=== PATIENT | male | born 1995 | race Caucasian/White ===

== ENCOUNTER → 2018-01-23 14:48 | Outpatient (CLI) | payer OTHER, SELFPAY ==
[2018-01-23 15:18] LABS: Hemoglobin A1C% w Est Avg Glu 4.7 % (4.0-6.0)
[2018-01-23 15:51] LABS: Cholesterol 139 mg/dL (140-199); HDL Cholesterol 58 mg/dL (40-60); LDL Cholesterol Calculated 69 mg/dL (<100); Triglycerides 61 mg/dL (35-150)
== END ==
PROVIDERS: PCP Internal Medicine; Visit Provider Internal Medicine
DX: Z00.00 Encounter for general adult medical examination without abnormal findings (principal)
CPT/HCPCS: 36415; 80061; 83036

== ENCOUNTER → 2018-10-10 10:10 | Outpatient (CLI) | payer OTHER, SELFPAY | PROVIDERS: Family Provider Family Medicine; PCP Internal Medicine; Visit Provider Registered Nurse | DX: R50.9 Fever, unspecified (principal) | CPT/HCPCS: 87400 ==

== ENCOUNTER 2020-08-30 15:30 | Outpatient (RCR) | payer OTHER, SELFPAY ==
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
== END 2020-09-13 11:12 ==
LOC: SP 15:30
PROVIDERS: PCP Internal Medicine; Referring Provider Internal Medicine; Visit Provider Internal Medicine
DX: H91.92 Unspecified hearing loss, left ear (principal); S06.9X9D Unspecified intracranial injury with loss of consciousness of unspecified duration, subsequent encounter; S06.339D Contusion and laceration of cerebrum, unspecified, with loss of consciousness of unspecified duration, subsequent encounter
CPT/HCPCS: 92507; 92523; 96125; 97129; 97130

== ENCOUNTER 2021-10-16 13:39 | Emergency (ER) | payer OTHER, SELFPAY ==
[2021-10-16 14:01] VITALS: BP 137/88; PULSE 102; RESP 17; TEMP 36.6; O2SAT 97; BMI 31.1
[2021-10-16] MEDS: TET,DIPH,PERTUSS(ACELL),VAC/PF 0.5 ML SYRINGE IM (16:04)
[2021-10-16] MEDS: PENICILLIN VK 250 MG TABLET 500 MG PO (16:30)
--- NOTE | 2021-10-16 16:33 | ED.ANIMALBIT ---
HPI - Animal Bite <AJ Cm - Last Filed: 10/16/21 16:37> General Chief Complaint: Animal Bite Stated Complaint: Bit by a mouse at work- needs rabies shot Time Seen by Provider: 10/16/21 16:17 Source: patient Mode of arrival: Ambulatory History of Present Illness HPI narrative: 26-year-old male works at an [employer] company was bitten by a mouse today on his left thumb. Patient has a history of asthma, denies any allergies, denies any drainage from the site. Patient states he has a small puncture wound on the medial aspect of his left thumb, he is right-handed. Wound was cleaned prior to arrival, he does not remember when his last tetanus was. Patient concerned about rabies. Patient denies any fever, states this happened earlier today, this is a work injury. Related Data Patient tetanus UTD: No Previous Rx's Medication Instructions Recorded albuterol sulfate 90 mcg/actuation 1 puff INHALATION Q4-6H PRN #6.7 10/10/18 aerosol inhaler gram azithromycin 250 mg tablet See Rx Instructions PO .COMPLEX #6 10/10/18 tab penicillin V potassium 500 mg 500 mg PO QID 3 Days #12 tab 10/16/21 tablet Allergies Allergy/AdvReac Type Severity Reaction Status Date / Time No Known Drug Allergies Allergy Verified 10/16/21 14:04 Review of Systems <AJ Cm - Last Filed: 10/16/21 16:37> Review of Systems Narrative: General: denies fever, chills, malaise, sweats, fatigue Head/Neck: denies headache, neck pain, dizziness Eyes: denies visual changes, eye pain Cardio: denies chest pain, palpitations, edema Respiratory: denies dyspnea, cough MSK: denies joint pain, muscle weakness Skin: denies rash, itching, small puncture wound to left thumb without bleeding, redness, or drainage Neuro: denies numbness, tingling Patient History <AJ Cm - Last Filed: 10/16/21 16:37> Medical History Chicken pox (~2001) Surgical History No history of previous surgery (09/08/15) Family History Father Age: 57 Essential hypertension Grandfather Age: 87 Heart disease Essential hypertension Grandmother Age: 83 Essential hypertension High cholesterol Social History Smoking Status: Never smoker alcohol intake: current substance use type: does not use Smoking Status: Never smoker alcohol intake frequency: other Substance Use Type: does not use Exam <AJ Cm - Last Filed: 10/16/21 16:37> Narrative Exam Narrative: Independently reviewed vitals signs and nursing notes. General: cooperative, comfortable, in no acute distress, well developed and well groomed Head: atraumatic, symmetrical facial expressions Neck: supple, atraumatic, without lymphadenopathy. Eyes: pupils equal round and reactive, EOMI, conjunctiva normal Nose: nares patent, no rhinorrhea Mouth/Throat: uvula midline, moist mucus membranes MSK: moves all extremities, ambulatory w/steady gait, neurovascularly intact, no weakness Skin: brisk capillary refill, no rash, no erythema, left thumb has a very small puncture wound without any erythema, drainage, edema, it is on the medial aspect, flexion extension of his thumb is intact at all joints without any deficits. Wound was cleaned Neuro: normal speech and cognition, A&O x3, normal tone Psych: mental status is grossly normal, congruent mood, normal affect, pleasant and cooperative Initial Vital Signs Initial Vital Signs: Vital Signs Temperature 97.8 F 10/16/21 14:01 Pulse Rate 102 H 10/16/21 14:01 Respiratory Rate 17 10/16/21 14:01 Blood Pressure 137/88 10/16/21 14:01 Pulse Oximetry 97 10/16/21 14:01 <Ludivina Phelps DO - Last Filed: 10/17/21 07:55> Initial Vital Signs Initial Vital Signs: Vital Signs Temperature 97.8 F 10/16/21 14:01 Pulse Rate 102 H 10/16/21 14:01 Respiratory Rate 17 10/16/21 14:01 Blood Pressure 137/88 10/16/21 14:01 Pulse Oximetry 97 10/16/21 14:01 Course <AJ Cm - Last Filed: 10/16/21 16:37> Orders Ordered: Discontinued Medications Diphtheria/Tetanus/Acell Pertussis (Tet,Diph,Pertuss(Acell),Vac/Pf 0.5 Ml Syringe) 0.5 ml IM .ONCE ONE Stop: 10/16/21 14:13 Last Admin: 10/16/21 16:04 Dose: 0.5 ml Documented by: KATHLEEN Penicillin V Potassium (Penicillin Vk 250 Mg Tablet) 500 mg PO NOW ONE Stop: 10/16/21 16:25 Last Admin: 10/16/21 16:30 Dose: 500 mg Documented by: KATHLEEN Vital Signs Vital signs: Vital Signs - 8 hr 10/16/21 14:01 Temperature 97.8 F Pulse Rate 102 H Respiratory Rate 17 Blood Pressure 137/88 Pulse Oximetry 97 <Ludivina Phelps DO - Last Filed: 10/17/21 07:55> Orders Ordered: Discontinued Medications Diphtheria/Tetanus/Acell Pertussis (Tet,Diph,Pertuss(Acell),Vac/Pf 0.5 Ml Syringe) 0.5 ml IM .ONCE ONE Stop: 10/16/21 14:13 Last Admin: 10/16/21 16:04 Dose: 0.5 ml Documented by: KATHLEEN Penicillin V Potassium (Penicillin Vk 250 Mg Tablet) 500 mg PO NOW ONE Stop: 10/16/21 16:25 Last Admin: 10/16/21 16:30 Dose: 500 mg Documented by: KATHLEEN Vital Signs Vital signs: Vital Signs - 8 hr 10/16/21 14:01 Temperature 97.8 F Pulse Rate 102 H Respiratory Rate 17 Blood Pressure 137/88 Pulse Oximetry 97 MDM - Animal Bite <AJ Cm - Last Filed: 10/16/21 16:37> [facility] Narrative Medical decision making narrative: 26-year-old male presents to the emergency department for work injury, he has a mouse bite to the left thumb that occurred just prior to arrival. Wound was cleansed, patient's tetanus was updated, he is given oral penicillin V 500 mg q.i.d. x3 days for rat bite fever prophylaxis. No indications for rabies vaccination this time since mice are not known to cause rabies infection. Patient was given 1 dose in the emergency department, instructed to keep his wound clean, covered, antibiotic ointment until it is closed. There is no bleeding, erythema, or edema, or streaking. Patient is appropriate and amenable to discharge home. Vital signs are stable on repeat examination is unremarkable. Patient has been informed of results. Patient has been given strict return to ER precautions for any new or worsening symptoms. Patient understands to follow up closely with outpatient providers as instructed. Patient understands plan and agrees to discharge home. All questions and concerns answered at this time. Discharge Plan Departure Patient Disposition: Home Clinical Impression: Work related injury Bitten by mouse Qualifiers: Encounter type: initial encounter Qualified Code(s): W53.01XA - Bitten by mouse, initial encounter Activity Restrictions/Additional Instructions: *You have been diagnosed with a mouse bite to her left thumb. To prevent infection following a mouth/rat bite we suggest prophylaxis with penicillin V for 3 days and tetanus vaccination if needed. You received her tetanus today, you do not need another 1 for 10 years, please take the penicillin pills 4 times a day for the next 3 days. Please drink plenty of water any food when you take medication. If you develop any streaking or redness up your thumb, signs of infection, or worsening please return to the emergency department in use [place] same [id number]. Please keep your wound clean, you apply antibiotic ointment, change or Band-Aid, and keep it covered while it is open. Thank you for trusting us with your care. *What to do: *Please continue to take your regular medications as directed. [x ] New medication prescriptions sent to your pharmacy: [ [facility]] [ ] New medication written as a paper prescription [ ] No new medications given *Please follow up with your primary care provider in 2-3 days, call for an appointment. Let them know you were seen in the Emergency Department and that we asked that you be seen for follow-up. We will electronically transmit a record of today's note if your PCP is in our system *If you do not have a primary care provider please contact [phone] to establish care with one of the [facility] primary care providers. *Return to Emergency Department if you should have any new, worsening or concerning symptoms, such as [fever greater than 101F, chills, worsening pain, persistent vomiting or other bothersome symptoms] Prescriptions: New penicillin V potassium 500 mg tablet 500 mg PO QID 3 Days Qty: 12 0RF No Action azithromycin 250 mg tablet See Rx Instructions PO .COMPLEX Qty: 6 0RF Dose Instruction: take 500 mg today (day 1), then 250 mg for 4 days (days 2-5) Rx Instructions: take 500 mg today (day 1), then 250 mg for 4 days (days 2-5) albuterol sulfate 90 mcg/actuation HFA aerosol inhaler 1 puff INHALATION Q4-6H PRN (Reason: shortness of breath or wheezing) Qty: 6.7 1RF <Ludivina Phelps, DO - Last Filed: 10/17/21 07:55> Cosign ED Attending Cosignature Attestation: I was immediately available in the department for consultation. Documentation has been reviewed. I agree with assessment and plan.
== END 2021-10-16 16:35 | disposition home or self-care (01) ==
PROVIDERS: Emergency Provider Nurse Practitioner Critical Care Medicine
DX: S61.052A Open bite of left thumb without damage to nail, initial encounter (principal); W53.01XA Bitten by mouse, initial encounter; Y99.0 Civilian activity done for income or pay; Z23 Encounter for immunization
CPT/HCPCS: 90471; 99283; 90715